=== PATIENT | female | born 1995 | race Caucasian/White ===

== ENCOUNTER 2019-10-15 06:54 | Outpatient (NON) | payer OTHER, SELFPAY ==
[2019-10-15 18:14] LABS: SARS-CoV-2 RNA PCR Negative
== END 2019-10-15 06:55 ==
PROVIDERS: PCP Nurse Practitioner Family; Visit Provider Nurse Practitioner Adult Health
DX: Z20.828 Contact with and (suspected) exposure to other viral communicable diseases (principal); R06.00 Dyspnea, unspecified
CPT/HCPCS: 87635; C9803; U0003

== ENCOUNTER 2020-02-10 11:10 | Outpatient (CLI) | payer OTHER, SELFPAY ==
--- NOTE | ~2020-02-10 | CT_ITS ---
EXAMINATION: CT BRAIN W/O DATE: 02/10/2020 11:49 INDICATION: Headache TECHNIQUE: Computed tomography (CT) of the head was performed without intravenous contrast. The dose- length product was 529.67 mGy-cm. The mA was adjusted according to patient size. Iterative reconstruc tion technique was employed. COMPARISON: No prior studies for comparison. FINDINGS: Normal brain parenchymal volume for age. Normal cosby-white differentiation. No acute intrac ranial hemorrhage, infarction, mass or mass effect. No ventriculomegaly or midline shift. Midline sagittal images demonstrate a normal corpus callosum, c raniovertebral junction and sella turcica. Basilar cisterns are patent. Paranasal sinuses and mastoids are pneumatized. No depressed skull fractures. IMPRESSION: 1. No acute intracranial abnormality. Reviewed, dictated and finalized at location A. SS ENGINEER
--- NOTE | ~2020-02-10 | XR_ITS ---
XR_CERV2-3V_CR DATE: 02/10/2020 11:31 INDICATION: Neck pain TECHNIQUE: AP, open-mouth, lateral views COMPARISON: None FINDINGS: There is mild reversal of cervical curvature. C1 and C2 are normally aligned and the odonto id process is intact. No fracture or dislocation or locked facet or prevertebral soft tissue swelling . Incidental finding of spina bifida occulta at C2 IMPRESSION: Mild reversal of cervical curvature Reviewed, dictated and finalized at Location A. Reviewed, dictated and finalized at location B. PLANT DISPATCHER
== END 2020-02-10 11:11 | disposition home or self-care (01) ==
PROVIDERS: PCP Nurse Practitioner Adult Health; Visit Provider Nurse Practitioner Adult Health
DX: R51.9 Headache, unspecified (principal); M54.2 Cervicalgia
CPT/HCPCS: 70450; 72040

== ENCOUNTER 2020-04-18 08:31 | Outpatient (CLI) | payer OTHER, SELFPAY ==
--- NOTE | ~2020-04-18 | US_ITS ---
EXAMINATION: US OB <=14 wk fetus w TV DATE: 04/18/2020 09:31 INDICATION: Supervision for normal dating. TECHNIQUE: Real-time transabdominal and transvaginal pelvic ultrasound was performed. COMPARISON: None. FINDINGS: TRANSABDOMINAL ULTRASOUND: The uterus measures 10.9 x 7.1 x 5.0 cm. TRANSVAGINAL ULTRASOUND: There is an intrauterine gestational sac. A yolk sac is identified. The fet al crown rump length measures 1.0 cm, which correlates with an estimated gestational age of 7 weeks a nd 1 day(s) (+/-) 5 day(s). heart motion is identified measuring 141 beats per minute (bpm) by M-mode Doppler. The right ovary is not visualized. The left ovary measures 4.5 x 2.4 x 2.7 cm. There is trace free fluid in the pelvis. IMPRESSION: 1. Single living intrauterine gestation with estimated date of delivery of 12/04/2020. Reviewed, dictated and finalized at location A. OT GRADER INSPECTOR IMPRESSION: 1. Single living intrauterine gestation with estimated date of delivery of 11/2020.
== END 2020-04-18 08:32 | disposition home or self-care (01) ==
PROVIDERS: PCP Nurse Practitioner Adult Health; Visit Provider Obstetrics & Gynecology
DX: Z34.80 Encounter for supervision of other normal pregnancy, unspecified trimester (principal); Z3A.00 Weeks of gestation of pregnancy not specified
CPT/HCPCS: 76801; 76817

== ENCOUNTER 2020-11-28 08:50 | Outpatient (CLI) | payer OTHER, SELFPAY ==
[2020-11-28 09:19] LABS: Hematocrit 35.6 % (37.0-47.0); Hemoglobin 11.4 g/dL (12.0-15.0); Mean Corpuscular Hemoglobin 29.8 pg (26-34); Mean Corpuscular Volume 93.2 fl (80-100); Platelet Count Result 156 k/mm3 (150-375); Red Blood Count 3.82 M/mm3 (4.2-5.4); Red Cell Distribution Width 12.6 % (11.5-14.5); White Blood Count 6.5 K/mm3 (4.5-10.0)
[2020-11-28 10:41] LABS: Rapid Plasma Reagin Non-Reactive (NonReactive)
== END 2020-11-28 08:51 | disposition home or self-care (01) ==
LOC: ANHLAB 08:53
PROVIDERS: PCP Nurse Practitioner Adult Health; Visit Provider Obstetrics & Gynecology
DX: Z34.93 Encounter for supervision of normal pregnancy, unspecified, third trimester (principal); Z3A.00 Weeks of gestation of pregnancy not specified
CPT/HCPCS: 36415; 85027; 85055; 86592; 86850; 86900; 86901

== ENCOUNTER 2020-11-29 01:43 | Inpatient (IN) | payer OTHER, SELFPAY ==
[2020-11-29] VITALS (73 sets, daily range): BP systolic 98–123; BP diastolic 60–91; PULSE 47–107; RESP 12–18; TEMP 36.4–36.9; O2SAT 85–100; BMI 23.8
--- OUTSIDE RECORDS SUMMARY | 2020-11-29 01:51 | XMS_ITS ---
:1995 Author Care Team Providers Name Role Phone DONITA ALCALA NP Primary Care Provider Unavailable DONITA ALCALA NP Referring Provider Unavailable Allergies Code Code System Name Reaction Severity Status Onset NKDA ? Medications Name Status Start Date Stop Date ? ? albuterol sulfate Completed ? 12/01/2018 albuterol sulfate HFA 90 mcg/actuation Active ? Not available aerosol inhaler alprazolam 0.25 mg tablet Active ? Not av ailable amoxicillin 500 mg capsule Completed ? 12/01 TAKE ONE CAPSULE BY MOUTH 3 TIMES A DAY FOR 10 DAYS amoxicillin 875 mg tablet Completed ? 2019 TAKE 1 TABLET BY MOUTH EVERY 12 HOURS FOR 10 DAYS azithromycin 250 mg tablet Completed ? 08/26 TAKE 2 TABLETS BY MOUTH TODAY, THEN TAKE 1 TABLET DAILY FOR 4 D AYS BD Veo Insulin Syringe Ultra-Fine 0.3 mL 31 gauge x 15/64 Compl eted ? 12/01/2018 USES TWICE DAILY FOR INSULIN Boostrix Tdap 2.5 Lf unit-8 mcg-5 Lf/0.5 mL intramuscular syring e Completed ? 12/01/2018 TO BE ADMINISTERED BY PHARMACIST FOR IMMUNIZATION buspirone 10 mg tablet Active ? Not avail able TAKE 1 TABLET BY MOUTH TWICE A DAY Contour Next Test Strips Active ? Not talha ilable Test blood sugar once daily desoximetasone 0.25 % topical cream Completed ? 06/15/2016 APPLY TWICE DAILY TO AFFECTED AREA escitalopram 10 mg tablet Active ? Not av ailable TAKE 1 TABLET BY MOUTH EVERY DAY escitalopram 20 mg tablet Completed ? 2019 T
[2020-11-29] MEDS: LACTATED RINGERS 1,000 ML 999 ML IV CONT ×2 (02:35→06:30)
--- NOTE | 2020-11-29 02:38 | LDADM ---
This patient, Valerie Washington, was admitted to Labor/Delivery/Recovery 120 on 11/29/20 at 01:43. Plans for labor, pain management and were discussed with patient. Patient/family oriented to hospital policies and general routines including ID bracelet, bed and alarms, visiting hours, pain management, procedures, bathroom and other care routines, personal items, smoking policy, room service/diet and guest tray routines, security routines, and visiting hours. Patient/Family are encouraged to report perceived risks to care and to ask questions if they do not understand what they are told or what they should do. See OBIX for further documentation.
--- NOTE | 2020-11-29 07:15 | P.PNAN_ITS ---
Anes - Initial Pre Proc Eval Procedure: Operation Date: 11/29/20 07:30 Proposed Procedures p Repeat Section - Freddy Sanabria MD Date/Time: 11/29/20 07:15 Surgeon: Freddy Sanabria MD Pre Op Diagnosis: Patient Data Age: 24 Gender: F Height: 1.63 m Weight: 63 kg Last Vital Signs Temp 98.5 F 11/29/20 02:58 Pulse 107 H 11/29/20 07:01 BP 117/87 11/29/20 07:01 Allergies Allergy/AdvReac Type Severity Reaction Status Date / Time No Known Allergies Allergy Verified 11/29/20 02:49 Home Medications Medication Instructions Recorded Confirmed Type PNV cmb#95-ferrous fumarate-FA 1 tablet PO DAILY 11/25/20 11/29/20 History [] aspirin 81 mg PO DAILY 11/25/20 11/29/20 History escitalopram oxalate [Lexapro] 10 mg PO DAILY 11/25/20 11/29/20 History insulin lispro [Humalog U-100 4 unit SUBCUT QAM 11/25/20 11/25/20 History Insulin] Patient hx anesthesia problems: none Family hx anesthesia problems: none Results Review: All pre-operative results and documents have been reviewed as part of the pre-operative evaluation. [facility] Past Medical History Medical History (Updated 11/29/20 @ 07:15 by Garfield Sam MD) Healthy adult Family History Family History (Updated 11/25/20 @ 12:39 by Casper Pat RN) Mother Diabetes mellitus Father Hypertension Social History Social History Smoking status: Never smoker Substance use: never Spiritual care concerns: No Anes - Eval Final PreProcedure Day of Procedure 11/29/20 07:15 Patient weight: overweight Heart: regular rate and rhythm Lungs: clear to auscultation Airway: Mallampati scale class II Neurological: alert and oriented Last oral intake: >/= 8 hours ASA classification: II Emergent: no Anesthetic plan: proceed Anesthesia type and monitoring: regional and standard monitoring Results Review: All pre-operative results and documents have been reviewed as part of the pre-operative evaluation. Informed Consent: The patient's anesthetic plan and its attendant risks and benefits were discussed with the patient/family/POA. Questions were solicited and answers provided to the satisfaction of the patient/family/POA.
--- NOTE | 2020-11-29 07:29 | PM.IMHP ---
H&P: HPI History of Present Illness Date/Time: 11/29/20 07:29 24 y/o at 39 2/7 weeks here with contractions, not in active labor. Arrived around 0200, coincidentally has repeat scheduled for this morning. Has A2DM, early onset. Has had good glycemic control on small doses of insulin. Anxiety, on Lexapro. comanaged with MFM. Chief Complaint: Cramping Review of Systems Review of Systems: All systems reviewed & are unremarkable except as noted in HPI and below PMFSH Past Medical History Medical History Anxiety Gestational diabetes mellitus Healthy adult Surgical History Surgical History History of delivery Family History Family History Mother Diabetes mellitus Father Hypertension Social History Social History Smoking status: Never smoker Substance use: never Spiritual care concerns: No Meds Home Medications and Allergies Home Medications Medication Instructions Recorded Confirmed Type PNV cmb#95-ferrous fumarate-FA 1 tablet PO DAILY 11/25/20 11/29/20 History [] aspirin 81 mg PO DAILY 11/25/20 11/29/20 History escitalopram oxalate [Lexapro] 10 mg PO DAILY 11/25/20 11/29/20 History insulin lispro [Humalog U-100 4 unit SUBCUT QAM 11/25/20 11/25/20 History Insulin] Allergies Allergy/AdvReac Type Severity Reaction Status Date / Time No Known Allergies Allergy Verified 11/29/20 02:49 Vital Signs Vital Signs - 24 hr 11/29/20 01:54 11/29/20 02:01 11/29/20 02:16 Temperature Pulse Rate 82 82 70 Blood Pressure 116/76 110/77 119/78 11/29/20 02:31 11/29/20 02:46 11/29/20 02:58 Temperature 36.9 C Pulse Rate 87 83 Blood Pressure 120/88 114/82 11/29/20 03:01 11/29/20 03:16 11/29/20 03:31 Temperature Pulse Rate 65 65 81 Blood Pressure 112/71 116/75 113/77 11/29/20 03:46 11/29/20 04:01 11/29/20 04:16 Temperature Pulse Rate 67 87 67 Blood Pressure 106/76 116/86 113/79 11/29/20 04:31 11/29/20 04:46 11/29/20 05:01 Temperature Pulse Rate 70 75 71 Blood Pressure 114/77 102/62 99/60 L 11/29/20 05:16 11/29/20 05:31 11/29/20 05:46 Temperature Pulse Rate 70 83 75 Blood Pressure 99/67 L 98/73 L 118/76 11/29/20 06:01 11/29/20 06:16 11/29/20 06:46 Temperature Pulse Rate 81 89 95 Blood Pressure 107/73 119/78 114/91 H 11/29/20 07:01 Temperature Pulse Rate 107 H Blood Pressure 117/87 Exam Const: Orientation/consciousness: patient oriented x3 Other: Well-developed, well-nourished female in no acute distress. Neck: Thyroid: thyroid normal Lymphatic: no lymphadenopathy noted (in neck, axilla or inguinal nodes) Resp: Effort & Inspection: normal respiratory effort Auscultation: clear to auscultation bilaterally Cardio: Rate: regular rate Rhythm: regular rhythm Heart sounds: S1 normal heart sound present and S2 normal heart sound present GI: Other: ABD: Soft, nontender, nondistended, gravid. No guarding or rebound tenderness. No hepatosplenomegaly. NST reactive. TOCO: rare contractions. : General: Yes no CVA tenderness Other: Cervix 1/50/-3 Back/Spine/Pelvis: Back: no CVA tenderness Skin: General skin exam: normal color and no rashes or lesions noted Neuro: General: patient oriented x3 Extrem: Other: Extremities: nontender with no edema Psych: Mental Status: mental status grossly normal Affect: normal affect Assessment and Plan Assessment and plan (1) History of delivery: Code(s): Z98.891 - History of uterine scar from previous surgery Status: Acute Assessment and Plan: A: IUP at 39 2/7 weeks with prior , A2DM. Desires repeat . P: She understands risks of surgery to include risks of anesthesia, ris
--- NOTE | 2020-11-29 07:34 | WPDHPUPDATE1 ---
History and Physical Update Update Date/Time: 11/29/20 07:34 History and Physical has been reviewed, including an updated exam of the patient. There are NO changes in the patient's condition. Risks, benefits, and alternatives have been discussed and questions answered. Patient agrees to proceed with procedure.
[2020-11-29 07:36] LABS: Glucose Point of Care 76 mg/dl (65-105)
--- NOTE | 2020-11-29 08:23 | P.PCNOB_ITS ---
OB - Delivery Note Procedure Delivery date: 11/29/20 Procedure: Procedures Operation Date: 11/29/20 07:30 <No data on this case meets the specified criteria> Repeat low transverse delivery Intrapartal events: None Delivery monitor: external FHT and external uterine Route of delivery: (repeat LTCS) Specimen: Yes (cord blood, placenta) Quantitative Blood Loss (ml): 675 Anesthesia type: Spinal Disposition: PACU Complications: None Narrative: The patient was taken to the operating room where she was prepared and draped in the usual sterile fashion in dorsal supine position with a leftward tilt. She received cefazolin preoperatively. Spinal anesthesia was found to be adequate. A Pfannenstiel skin incision was made along the previous scar line and was carried through to the underlying layer of the fascia. The fascia was incised in the midline and the incision was extended laterally. The fascia was dissected free of the underlying rectus muscles. The rectus muscles were in the midline. The peritoneum was identified, tented up and entered sharply. The peritoneal incision was extended superiorly and inferiorly with good visualization of the bladder. The bladder blade was placed. The vesicouterine peritoneum was identified, tented up and entered sharply. The incision was extended laterally and the bladder flap was developed. The bladder blade was replaced. The uterus was then incised sharply in a transverse fashion along the lower uterine segment. The incision was extended laterally. Thinly meconium-stained fluid was noted. The 's head was delivered atraumatically to the sterile field, followed by the body. The nose and mouth were bulb suctioned. After a delay, the cord was clamped and cut. The infant was handed off the field. Cord blood was collected. The placenta was removed manually and was passed off the field. The uterus was exteriorized and cleared of all clots and debris. The uterus, tubes and ovaries were all normal in appearance. The uterine incision was reapproximated using 0 Monocryl in a running, locked fashion. A second, imbricating layer of the same suture was run. Excellent hemostasis resulted as did excellent reapproximation of the normal anatomy. The uterus was returned the abdomen. The pelvis was irrigated copiously with warmed normal saline. Rigorous hemostasis was assured. The fascial layer was reapproximated using 0 Vicryl in a running fashion. The skin was closed with a running, subcuticular stitch of 4 0 Vicryl. Dermaflex was applied externally. Sponge, lap, needle and instrument counts were correct. The patient was taken to the recovery room in stable condition. The infant went to the nursery in stable condition. I was present and scrubbed the entire procedure. [facility] Baby Date of : 11/29/20 Time of : 07:59 Weeks of gestation at delivery: 39 gender: Female Weight (pounds): 10 Weight (ounces): 3 presentation: vertex Placenta delivery description: Manual Removal and Normal Configuration cord vessel description: 3 Vessels and Delayed Cord Clamping score one minute: 9 score five minutes: 9
--- NOTE | 2020-11-29 08:26 | PM.OBDSVD ---
DS: Admitting Diagnosis Discharge Date 12/02/20 Admitting Diagnosis IUP at 39 2/7 weeks Cramping Prior , desires repeat A2DM, well-controlled DS: Discharge Diagnosis Discharge Diagnosis (1) Gestational diabetes mellitus: Code(s): O24.419 - Gestational diabetes mellitus in , unspecified control Status: Acute (2) History of delivery: Code(s): Z98.891 - History of uterine scar from previous surgery Status: Acute OB - DS: Summary OB Procedures : None OB Procedures Intrapartum: Spontaneous Vag Delivery OB Procedures: : None Peripartum Data Procedures: Procedures Operation Date: 11/29/20 07:30 <No data on this case meets the specified criteria> Repeat LTCS DS: Data Data Completed and Pending Labs on day of discharge: Labs from last 24 hours 11/29/20 07:33 POC Capillary Glucose 76 Discharge Plan Discharge Attending physician on discharge: Freddy Sanabria Consulting providers: Freddy Sanabria ; Garfield Sam Discharging Clinician: Freddy Sanabria Patient Disposition: Home, Self-Care Activity: pelvic rest Diet: regular Wound Care Instructions: incision open to air Discharge Instructions: Education: Mom and Baby Guide Given to: Mother Follow-Up: Call your delivering provider's office for an appointment to be seen in: 4 Weeks Mom and baby should come to the [facility] for the follow-up appointment. Appointment Date/Time: December 03, 2020 at 11:00 am What to expect at your follow-up visit: Blood Pressure Check Physical Assessment Call [phone] if you are unable to keep your appointment time. BREAST CARE: * Wear a snug supportive bra. * For engorgement discomfort: Breast Feeding: * Apply warm moist washcloths * Express milk as needed to relieve engorgement * Wear loose clothing * For sore nipples: * Identify correct latch-on * Apply warm moist washcloths before and after nursing * Air dry nipples after nursing * May apply Lansinoh cream to nipples ABDOMINAL INCISION: (if applicable) * Allow incision to air dry * Do NOT use lotions for powders on your incision * When showering, allow soap and water to run over the incision, but do not wash incision EPISIOTOMY/PERINEAL CARE: * Until bleeding stops, use your kp bottle after urinating * Change your pad frequently throughout the day * You may take sitz baths several times a day (fill your bathtub with warm water and soak for 20 minutes.) Do NOT bathe in the water * No tub baths until seen by your physician - You may shower ACTIVITY: * Rest as much as possible. * Do not exercise or lift anything heavier than your baby (such as laundry or other children.) * Avoid stairs or driving as much as possible. * Do not put anything into the vagina. No douching, tampons, or sexual activity until seen by physician. NOTIFY PHYSICIAN IF YOU HAVE ANY QUESTIONS OR IF ANY OF THE FOLLOWING SYMPTOMS OCCUR: * If your incision becomes red, swollen, or more painful than what you have experienced in the hospital. * If your vaginal bleeding becomes foul smelling. * If your vaginal bleeding becomes more heavy than a period or if your bleeding changes from pink to bright red. However, you may pass an occasional walnut-sized clot once or twice for the first week . * If you experience a sharp, shooting pain in your calves. * If you discover a hard, reddened area on your breast or if you experience flu-like symptoms. DIET: * Eat regular, well-balanced meals. * Drink plenty of fluids daily. If , drink to thirst. Call or return if temperature above 100.4? F, increased abdominal pain, increased vaginal bleeding or any new problems. Patient Instructions: (DC) Stand Alone Forms: General Discharge Information Follow-up
[2020-11-29] MEDS: KETOROLAC 30 MG/ML VIAL (*BKC) IV PUSH ×2 (08:49→17:35)
[2020-11-29] MEDS: miSOPROStol 200 MCG TABLET 1000 MCG RECTAL (09:21)
[2020-11-29] MEDS: OXYTOCIN 30 UNITS/NS 500 ML 30 UNITS/500 ML BAG 125 UNITS IV CONT (09:27)
[2020-11-29 13:28] LABS: Glucose Point of Care 58 mg/dl (65-105)
[2020-11-29] MEDS: HYDROcodone/acetaminophen (*CRX) 10-325 MG TABLET 1 TAB PO (13:31)
[2020-11-29] MEDS: DEXTROSE 5%/0.45% SOD CHL 1,000 ML 125 ML IV CONT (13:41)
[2020-11-29 14:37] LABS: Glucose Point of Care 77 mg/dl (65-105)
--- NOTE | 2020-11-29 14:59 | PC.NURSE ---
Checked in with patient and she denies any needs or questions at this time.
[2020-11-29] MEDS: HYDROcodone/acetaminophen (*CRX) 5-325 MG TABLET 1 TAB PO (17:35)
[2020-11-29 19:14] LABS: Glucose Point of Care 142 mg/dl (65-105)
[2020-11-30] VITALS: BP 111/71; PULSE 71; RESP 16; TEMP 36.3
[2020-11-30] MEDS: IBUPROFEN 600 MG TABLET PO ×4 (00:10→23:22)
[2020-11-30] MEDS: HYDROcodone/acetaminophen (*CRX) 5-325 MG TABLET 1 TAB PO ×5 (00:10→23:22)
[2020-11-30 00:35] LABS: Glucose Point of Care 122 mg/dl (65-105)
[2020-11-30 04:22] VITALS: BP 106/71; PULSE 84; RESP 16; TEMP 36.3
[2020-11-30] MEDS: HYDROcodone/acetaminophen (*CRX) 10-325 MG TABLET 1 TAB PO ×2 (04:40→10:38)
[2020-11-30 05:19] LABS: Basophils Percent Auto 0.2 % (0.2-1.2); Eosinophils Absolute Auto 0.1 K/mm3 (0-0.3); Eosinophils Percent Auto 1.4 % (0-4.4); Hemoglobin 9.5 g/dL (12.0-15.0); Immature Granulocyte Absolute 0.05 K/mm3 (0.00-0.031); Immature Granulocyte Percent A 0.6 % (0-0.5); Immature Platelet Fraction Pct 5.8 % (0.9-11.2); Lymphocytes Absolute Auto 0.88 K/mm3 (0.9-3.2); Lymphocytes Percent Auto 10.4 % (18.3-44.2); Mean Corpuscular HGB Conc 32.8 g/dl (32-36); Mean Corpuscular Hemoglobin 30.4 pg (26-34); Mean Corpuscular Volume 92.7 fl (80-100); Mean Platelet Volume 11.4 fl (7.4-10.4); Monocytes Absolute Auto 0.7 K/mm3 (0.1-0.6); Monocytes Percent Auto 7.6 % (2.6-8.5); Neutrophils Absolute Auto 6.8 K/mm3 (1.3-6.7); Neutrophils Percent Auto 79.8 % (45.5-73.1); Platelet Count Result 146 k/mm3 (150-375); Red Blood Count 3.13 M/mm3 (4.2-5.4); Red Cell Distribution Width 12.7 % (11.5-14.5); White Blood Count 8.5 K/mm3 (4.5-10.0)
[2020-11-30 08:00] VITALS: BP 112/79; PULSE 81; RESP 18; TEMP 36.3; O2SAT 100
[2020-11-30] MEDS: DOCUSATE SODIUM 100 MG CAPSULE PO ×2 (10:36→17:22)
[2020-11-30] MEDS: POLYSACCHARIDE IRON COMPLEX 150 MG CAPSULE PO ×2 (10:37→17:21)
[2020-11-30] MEDS: SIMETHICONE 80 MG TAB.CHEW PO ×4 (10:38→23:22)
[2020-11-30 11:08] LABS: Glucose Point of Care 53 mg/dl (65-105)
[2020-11-30 11:08] LABS: Glucose Point of Care 61 mg/dl (65-105)
[2020-11-30 12:30] VITALS: PULSE 81; RESP 18; O2SAT 100
--- NOTE | 2020-11-30 14:28 | PM.OBPNVD ---
OB - PN: Subj Subjective Date/time seen: 11/30/20 14:28 Narrative: Pain OK. Tolerating diet. OB - PN: Obj Data Labs CBC & Chem 7: 11/30/20 04:34 Labs: Laboratory Results - last 24 hr 11/29/20 11/29/20 11/30/20 14:26 19:09 00:32 WBC RBC Hgb Hct MCV MCH MCHC RDW Plt Count MPV Immature Gran % (Auto) Neut % (Auto) Lymph % (Auto) [place] % (Auto) Eos % (Auto) Baso % (Auto) Lymph # (Auto) [place] # (Auto) Eos # (Auto) Baso # (Auto) Abs Immat Gran (auto) Absolute Neuts (auto) Absolute Nucleated RBC Nucleated RBC % % Immature Plt Fraction POC Capillary Glucose 77 142 H 122 H 11/30/20 11/30/20 11/30/20 04:34 11:03 11:05 WBC 8.5 RBC 3.13 L Hgb 9.5 L Hct 29.0 L MCV 92.7 MCH 30.4 MCHC 32.8 RDW 12.7 Plt Count 146 L MPV 11.4 H Immature Gran % (Auto) 0.6 H Neut % (Auto) 79.8 H Lymph % (Auto) 10.4 L [place] % (Auto) 7.6 Eos % (Auto) 1.4 Baso % (Auto) 0.2 Lymph # (Auto) 0.88 L [place] # (Auto) 0.7 H Eos # (Auto) 0.1 Baso # (Auto) 0.0 Abs Immat Gran (auto) 0.05 H Absolute Neuts (auto) 6.8 H Absolute Nucleated RBC 0.0 Nucleated RBC % 0.0 % Immature Plt Fraction 5.8 POC Capillary Glucose 53 L* 61 L OB - PN A/P Plan Comments: A: POD#1, doing well. P: Routine care. Exam Narrative: AVSS I/O OK ABD soft, nontender, fundus firm. Incision c/d/i. EXT nontender
--- NOTE | 2020-11-30 14:35 | WPDANLDNPN2 ---
Anes-Prog Note L&D-Neuraxial Date/Time: 11/30/20 14:35 Neuraxial medications: intrathecal PF morphine Opiod-related complaints: none Patient feedback: Patient satisfied with post-operative pain management.
--- NOTE | 2020-11-30 14:35 | WPDANLDPN2 ---
Anes-Prog Note L&D Date/Time: 11/30/20 14:35 Comfortable throughout: section Neuraxial method: spinal Epidural/Spinal procedure site: clean & non-tender Neuro status: Neuro function grossly intact. Cardiovascular status: normal Respiratory status: normal Airway patency: baseline Mental status: baseline Post-Op hydration status: normal Vital Signs: Last Vital Signs Temp 36.3 C L 11/30/20 08:00 Pulse 81 11/30/20 12:30 Resp 18 11/30/20 12:30 BP 112/79 11/30/20 08:00 Pulse Ox 100 11/30/20 12:30 Pain score (VAS): 0 I/O: Intake & Output 11/29/20 11/30/20 11/30/20 23:59 07:59 15:59 Intake Total 7835 419 0584 Output Total 800 2000 900 Balance 200 -1500 600 Post-procedural complaints: none Patient feedback: Patient satisfied with anesthetic care.
[2020-11-30 19:35] VITALS: BP 101/55; PULSE 79; RESP 16; TEMP 36.3
[2020-12-01] MEDS: HYDROcodone/acetaminophen (*CRX) 5-325 MG TABLET 1 TAB PO ×5 (04:30→23:45)
[2020-12-01 08:25] VITALS: BP 109/71; PULSE 81; RESP 18; TEMP 36.9; O2SAT 100
--- NOTE | 2020-12-01 08:49 | PM.OBPNVD ---
OB - PN: Subj Subjective Date/time seen: 12/01/20 08:49 Narrative: Pain OK. Tolerating diet. OB - PN: Obj Data Labs CBC & Chem 7: 11/30/20 04:34 Labs: Laboratory Results - last 24 hr 11/30/20 11/30/20 11:03 11:05 POC Capillary Glucose 53 L* 61 L OB - PN A/P Plan Comments: A: POD#2, doing well. P: Routine care. Exam Narrative: AVSS I/O OK ABD soft, nontender, fundus firm. Incision c/d/i. EXT nontender
[2020-12-01] MEDS: IBUPROFEN 600 MG TABLET PO ×3 (08:58→22:00)
[2020-12-01] MEDS: POLYSACCHARIDE IRON COMPLEX 150 MG CAPSULE PO ×2 (08:59→17:45)
[2020-12-01] MEDS: MULTIVIT/MIN/PREN/FOL AC/IRON TABLET 1 TAB PO (08:59)
[2020-12-01] MEDS: DOCUSATE SODIUM 100 MG CAPSULE PO ×2 (08:59→17:45)
[2020-12-01] MEDS: ESCITALOPRAM OXALATE 10 MG TABLET PO (09:00)
[2020-12-01] MEDS: SIMETHICONE 80 MG TAB.CHEW PO ×5 (09:04→22:00)
--- NOTE | 2020-12-01 09:20 | PC.NURSE ---
Mother called out for assessment of latch. Mother reports first child with typical latch issues at fist and quickly resolving. Infant had some issues with fussiness which she contributed to her diet. Discussed no dietary restrictions with and reviewed possible fussiness when transitioning to breast milk. Reviewed feeding cues, frequencies, duration of feedings, feeding elimination flow sheet, and signs of adequate intake. Demonstrated stimulation techniques to wake for feeding. Assisted with to breast. Reviewed positioning/alignment in cross cradle, holding breast in ?U? hold and guided asymmetrical latch on. Reviewed rational for each. Infant able to latch correctly within a few attempts. nursed eagerly with steady draws and occasional swallowing noted, some pausing noted. Reviewed signs of a correct latch, effective nursing and suck swallow ratio. Suggested mother stimulate while feeding to increase stimulate, increase intake and to assist with maintaining deep latch. was able to maintain latch without discomfort to mother. Demonstrated how to adjust latch more deeply while feeding if needed. Mother does not continue to hold breast, she switched to cradle positioning. Infant was able to maintain latch. Nipple care reviewed of lanolin after feedings, warm compresses as needed. Instructed mother to call out for RN assistance if she is unable to latch infant for feeding or she has discomfort with nursing. Instructed feeding should be initiated three hours from start of last feeding or if feeding cues are noted before. Mother voiced understanding of information shared.
[2020-12-01 18:55] VITALS: BP 108/74; PULSE 89; RESP 16; TEMP 36.3
[2020-12-02] MEDS: IBUPROFEN 600 MG TABLET PO ×2 (05:50→11:41)
[2020-12-02 07:45] VITALS: BP 121/81; PULSE 82; RESP 16; TEMP 36.6; O2SAT 100
[2020-12-02] MEDS: DOCUSATE SODIUM 100 MG CAPSULE PO (08:15)
[2020-12-02] MEDS: MULTIVIT/MIN/PREN/FOL AC/IRON TABLET 1 TAB PO (08:15)
[2020-12-02] MEDS: SIMETHICONE 80 MG TAB.CHEW PO ×2 (08:15→11:41)
[2020-12-02] MEDS: POLYSACCHARIDE IRON COMPLEX 150 MG CAPSULE PO (08:15)
[2020-12-02] MEDS: HYDROcodone/acetaminophen (*CRX) 10-325 MG TABLET 1 TAB PO ×2 (08:16→11:41)
[2020-12-02 09:30] VITALS: PULSE 82; RESP 16; O2SAT 100
--- NOTE | 2020-12-02 09:50 | PC.NURSE ---
Consult with pt., observed mother is able to independently latch with appropriate positioning/alignment. Infant eagerly latches on first attempt with long rhythmical draws and frequent swallowing noted. She denies any nipple discomfort, is feeding as required and waking infant to feed if needed. Infant has had at least 8 effective feedings in the past 24 hours, and is currently meeting outcomes for weight, output, jaundice and feeding frequencies. Mother states she feels confident to continue effective at home. Reviewed transition to breast milk, signs of adequate intake, and engorgement/relief. Instructed to call ICP if intake/output less than required. Reviewed regular medications mother is taking. Information provided per Yvonne. Reviewed community resources on the [facility] website and in the Mom/Baby guide. Information on outpatient services provided. Mother has no further questions at this time. Instructed feeding should be initiated three hours from start of last feeding or if feeding cues are noted before until seen by ICP. Mother voiced understanding of information shared.
[2020-12-05 11:22] VITALS: BP 108/76; PULSE 84; RESP 20; TEMP 36.8; O2SAT 100
== END 2020-12-02 12:10 | disposition home or self-care (01) | DRG 540 ==
LOC: ANHLDR 08:28 → ANHOB2 12-02 06:58 → ANHLDR 12-05 10:01 → ANHOB2 12-05 10:01
PROVIDERS: Obstetrics & Gynecology; Admitting Provider Obstetrics & Gynecology; PCP Nurse Practitioner Adult Health; Visit Provider Student in an Organized Health Care Education/Training Program
PROC: 10D00Z1 Extraction of Products of Conception, Low, Open Approach (ICD-10-PCS; CPT 59514; principal; 2020-11-29 07:30)
DX: O34.211 Maternal care for low transverse scar from previous cesarean delivery (principal); Z37.0 Single live birth; Z3A.39 39 weeks gestation of pregnancy; O24.424 Gestational diabetes mellitus in childbirth, insulin controlled; O99.344 Other mental disorders complicating childbirth; F41.9 Anxiety disorder, unspecified; Z23 Encounter for immunization
CPT/HCPCS: 36415; 82948; 85025; 85055; 88307; 90471; 90653; A9270; G0008; J0131; J1885; J2274; J2370; J2405; J2590; J7120